=== PATIENT | male | born 1960 | race Caucasian/White ===

== ENCOUNTER 2019-08-24 16:19 | Emergency (ER) | payer MEDICAID ==
[~2019-08-24] VITALS: Ht 185.4 cm; Wt 88.0 kg
[~2019-08-24 16:19] MED LIST: AMLO-314 PO; BUSP5TAB3 PO; GABA-530 PO; IBUP-1984 PO; IMIP50TA7 PO; LIDOcaine 1% W/epiNEPHrine 1:100,000 20ml vial ONE; OLAN10TA3 PO
[2019-08-24 16:24] VITALS: BP 151/97
[2019-08-24] MEDS ORDERED: TETanus/Pertussis (Acell)/Diphther VAC/PF (Tdap-Adult) 0.5ml syringe IMVAC ONE (17:05)
[2019-08-24] MEDS ORDERED: LIDOcaine 1% W/epiNEPHrine 1:200,000 10ml vial IJ ONE (17:05)
== END 2019-08-24 17:54 | disposition home or self-care (01) ==
LOC: ER 16:19
DX: S61.412A Laceration without foreign body of left hand, initial encounter (principal); E78.00 Pure hypercholesterolemia, unspecified; I10 Essential (primary) hypertension; K21.9 Gastro-esophageal reflux disease without esophagitis; F41.9 Anxiety disorder, unspecified; F32.9 Major depressive disorder, single episode, unspecified; F20.9 Schizophrenia, unspecified; Z79.899 Other long term (current) drug therapy; W26.0XXA Contact with knife, initial encounter; Y93.89 Activity, other specified; Y92.89 Other specified places as the place of occurrence of the external cause; Y99.8 Other external cause status
CPT/HCPCS: 12001; 90471; 99283

== ENCOUNTER 2019-09-08 15:07 | Emergency (ER) | payer MEDICAID ==
[~2019-09-08] VITALS: Ht 185.4 cm; Wt 94.0 kg
[~2019-09-08 15:07] MED LIST changes: -LIDOcaine 1% W/epiNEPHrine 1:100,000 20ml vial ONE
[2019-09-08 15:26] VITALS: BP 148/99
[2019-09-08] MEDS ORDERED: BUSP5TAB3 PO (16:25)
[2019-09-08] MEDS ORDERED: GABA-530 PO (16:25)
[2019-09-08] MEDS ORDERED: AMLO5TAB PO (16:30)
[2019-09-08] MEDS ORDERED: IMIP50TA7 PO (16:30)
[2019-09-08] MEDS ORDERED: OLAN10TA21 PO (16:30)
== END 2019-09-08 16:40 | disposition home or self-care (01) ==
LOC: ER 15:08
DX: F20.9 Schizophrenia, unspecified (principal); E78.00 Pure hypercholesterolemia, unspecified; I10 Essential (primary) hypertension; K21.9 Gastro-esophageal reflux disease without esophagitis; F41.9 Anxiety disorder, unspecified; F32.9 Major depressive disorder, single episode, unspecified; Z79.899 Other long term (current) drug therapy
CPT/HCPCS: 99283

== ENCOUNTER 2019-10-14 15:43 | Emergency (ER) | payer MEDICAID ==
[~2019-10-14] VITALS: Ht 185.4 cm; Wt 99.3 kg
[~2019-10-14 15:43] MED LIST changes: +OLAN10TA21 PO
[2019-10-14] MEDS ORDERED: IBUP-1984 PO (16:54)
[2019-10-14 17:06] VITALS: BP 101/68
== END 2019-10-14 17:07 | disposition home or self-care (01) ==
LOC: ER 15:43
DX: M79.644 Pain in right finger(s) (principal); E78.00 Pure hypercholesterolemia, unspecified; I10 Essential (primary) hypertension; K21.9 Gastro-esophageal reflux disease without esophagitis; Z79.899 Other long term (current) drug therapy; W23.0XXA Caught, crushed, jammed, or pinched between moving objects, initial encounter; Y93.43 Activity, gymnastics; Y92.39 Other specified sports and athletic area as the place of occurrence of the external cause; Y99.9 Unspecified external cause status
CPT/HCPCS: 29125; 73130; 99284